=== PATIENT | male | born 1945 | race Caucasian/White ===

== ENCOUNTER → 2019-02-01 | Day surgery (SDC) | payer MEDICARE, OTHER ==
[~2019-02-01] MED LIST: Lactated Ringers 1,000 ML IV SCH; Propofol 200 MG/20 ML SDV IV ONE
--- NOTE | 2019-02-01 11:28 | OR ---
DATE OF OPERATION: 02/01/2019 PREOPERATIVE DIAGNOSIS: HISTORY OF COLON POLYPS. POSTOPERATIVE DIAGNOSIS: HISTORY OF COLON POLYPS. SURGEON: Chinedu Ornelas MD PROCEDURE: SURVEILLANCE COLONOSCOPY WITH POLYP REMOVAL X2, ONE VIA SNARE, ONE VIA FORCEPS. ANESTHESIA: MAC via [employer]. COMPLICATIONS: None. SPECIMEN: Tubular adenomas x2. See report. FINDINGS: 1. Full-length colonoscopy. 2. Small flat sessile polyp, cecal pouch. 3. Tubular adenomas, sigmoid colon. RECOMMENDATIONS: Followup colonoscopy in 5 years. INDICATIONS: The patient was in for a routine physical. He is overdue for a routine colonoscopy with a prior history of polyp removal. DESCRIPTION OF PROCEDURE: The patient was prepped and draped, placed in left lateral decubitus position. A lubricated Olympus colonoscope was inserted and with ease advanced to the cecum. We were able to directly visualize the ileocecal valve and appendiceal orifice. The bowel prep was fine. Upon withdrawal, right in the cecal pouch, the patient had a small flat sessile polyp in the cecal pouch, it was probably 2 to 3 mm, removed in its entirety with a forceps. The rest of the ascending, transverse, and descending colons were completely benign. In the mid portion of the sigmoid colon, the patient had a typical slightly less than 0.5 cm stalk tubular adenoma removed with a snare and suctioned into polyp trap #1 without difficulty. Throughout the rest of the sigmoid, there were no other polyps, mass, ulceration, or bleeding sites. No vascular abnormalities or signs of colitis. The rectal vault appeared benign. Retroflexion showed no perianal lesions. Air was suctioned, scope removed without complication. RADHA/NOHEMI /[id number]
== END ==
LOC: CC.SDS 08:28
PROVIDERS: ATTEND Family Medicine
DX: Z12.11 Encounter for screening for malignant neoplasm of colon (principal); D12.0 Benign neoplasm of cecum; D12.5 Benign neoplasm of sigmoid colon; I10 Essential (primary) hypertension; H26.9 Unspecified cataract; F41.9 Anxiety disorder, unspecified; F17.210 Nicotine dependence, cigarettes, uncomplicated; M17.10 Unilateral primary osteoarthritis, unspecified knee; Z88.1 Allergy status to other antibiotic agents; Z88.8 Allergy status to other drugs, medicaments and biological substances; Z86.010 Personal history of colon polyps; Z79.82 Long term (current) use of aspirin; Z79.899 Other long term (current) drug therapy
CPT/HCPCS: 45385; J2704; J7120

== ENCOUNTER 2024-08-29 22:29 | Inpatient (IN) | payer MEDICARE, MEDICAID ==
[2024-08-29 22:48] LABS: BASOPHILS ABSOLUTE AUTO 0.01 10^3/uL (0.00-0.50); BASOPHILS PERCENT AUTO 0.1 % (0-1); EOSINOPHILS ABSOLUTE AUTO 0.04 10^3/uL (0.00-1.50); EOSINOPHILS PERCENT AUTO 0.2 % (0-6); HEMOGLOBIN 14.7 g/dL (14.0-18.0); IMMATURE GRAN ABSOLUTE AUTO 0.28 10^3/uL (0.00-0.49); IMMATURE GRAN PERCENT AUTO 1.5 % (0.0-4.9); LYMPHOCYTES ABSOLUTE AUTO 1.44 10^3/uL (0.60-5.00); LYMPHOCYTES PERCENT AUTO 7.6 % (24-44); MEAN CORPUSCULAR HEMOGLOBIN 31.1 pg (27.0-32.0); MEAN CORPUSCULAR HGB CONC 33.4 g/dL (32.0-36.0); MEAN CORPUSCULAR VOLUME 93.2 fL (83.0-97.0); MONOCYTES ABSOLUTE AUTO 1.77 10^3/uL (0.00-1.50); MONOCYTES PERCENT AUTO 9.4 % (0-10); NEUTROPHILS ABSOLUTE AUTO 15.37 x10^3/uL (1.80-8.00); NEUTROPHILS PERCENT AUTO 81.2 % (41-71); PLATELET COUNT,PLT 227 10^3/uL (150-400); RED BLOOD CELL COUNT 4.72 x10^6/uL (4.50-6.00); WHITE BLOOD CELL COUNT,WBC 18.9 10^3/uL (4.0-11.0)
[2024-08-29 23:04] LABS: ALBUMIN 2.4 g/dL (3.4-5.0); BILIRUBIN TOTAL 0.7 mg/dL (0.0-1.0); C-REACTIVE PROTEIN 12.5 mg/dL (<=0.50); CALCIUM 9.5 mg/dL (8.4-10.1); CREATININE 1.2 mg/dL (0.7-1.3); EST CRCL DRUG DOSING (CG) 53.16 mL/min; MAGNESIUM 2.1 mg/dL (1.8-2.4); POTASSIUM,K 4.2 mEq/L (3.5-5.0); PROTEIN TOTAL,TP 6.4 g/dL (6.4-8.2)
[2024-08-29] MEDS: Iopamidol 755 Mg/ML 100 ML Bottle IVPUSH ONE (23:09)
[2024-08-29] MEDS: Acetaminophen 325 MG Tab PO ONE (23:16)
[2024-08-29 23:21] LABS: CORONAVIRUS COVID-19 NAA NEGATIVE (NEGATIVE); INFLUENZA A NAA NEGATIVE (NEGATIVE); INFLUENZA B NAA NEGATIVE (NEGATIVE); RESPIRATORY SYNCYTIAL VIR NAA NEGATIVE (NEGATIVE)
[2024-08-29 23:32] LABS: APPEARANCE,URINE CLEAR (CLEAR); BILIRUBIN,URINE NEGATIVE (NEGATIVE); COLOR,URINE YELLOW (YELLOW); GLUCOSE,URINE NEGATIVE (NEGATIVE); KETONES,URINE NEGATIVE (NEGATIVE); LEUKOCYTE ESTERASE,URINE NEGATIVE (NEGATIVE); NITRITE,URINE NEGATIVE (NEGATIVE); OCCULT BLOOD,URINE SMALL (NEGATIVE); PH,URINE 6.5 (4.5-8.0); PROTEIN,URINE NEGATIVE (NEGATIVE)
[2024-08-29 23:36] LABS: BACTERIA,URINE NOT SEEN /HPF (NOT SEEN); EPITHELIAL CELLS,URINE RARE /HPF (NOT SEEN); MUCUS,URINE NOT SEEN /HPF (NOT SEEN); RBC,URINE 0-5 /HPF (0-5); WBC,URINE NOT SEEN /HPF (0-5)
[2024-08-30] MEDS: ALPRAZolam 0.25 MG Tab PO STA (01:01)
[2024-08-30] MEDS ORDERED: Ondansetron 4 MG/2 ML SDV IV PRN (01:30)
[2024-08-30] MEDS ORDERED: Ondansetron 4 MG Tab.DIS PO PRN (01:30)
[2024-08-30] MEDS ORDERED: Acetaminophen 650 MG Supp RECTAL PRN (01:30)
[2024-08-30] MEDS: Sodium Chloride 0.9% 1,000 ML IV SCH (02:01)
[2024-08-30 07:41] LABS: ALBUMIN 2.3 g/dL (3.4-5.0); BILIRUBIN TOTAL 0.7 mg/dL (0.0-1.0); C-REACTIVE PROTEIN 11.56 mg/dL (<=0.50); CALCIUM 9.6 mg/dL (8.4-10.1); CREATININE 1.2 mg/dL (0.7-1.3); EST CRCL DRUG DOSING (CG) 35.3 mL/min; POTASSIUM,K 4.2 mEq/L (3.5-5.0); PROTEIN TOTAL,TP 6.1 g/dL (6.4-8.2)
[2024-08-30 07:44] LABS: BASOPHILS ABSOLUTE AUTO 0.02 10^3/uL (0.00-0.50); BASOPHILS PERCENT AUTO 0.1 % (0-1); EOSINOPHILS ABSOLUTE AUTO 0.04 10^3/uL (0.00-1.50); EOSINOPHILS PERCENT AUTO 0.3 % (0-6); HEMATOCRIT 43.6 % (42.0-52.0); HEMOGLOBIN 14.3 g/dL (14.0-18.0); IMMATURE GRAN ABSOLUTE AUTO 0.22 10^3/uL (0.00-0.49); IMMATURE GRAN PERCENT AUTO 1.4 % (0.0-4.9); LYMPHOCYTES ABSOLUTE AUTO 1.61 10^3/uL (0.60-5.00); LYMPHOCYTES PERCENT AUTO 10.5 % (24-44); MEAN CORPUSCULAR HGB CONC 32.8 g/dL (32.0-36.0); MEAN CORPUSCULAR VOLUME 94.6 fL (83.0-97.0); MONOCYTES ABSOLUTE AUTO 1.65 10^3/uL (0.00-1.50); MONOCYTES PERCENT AUTO 10.8 % (0-10); NEUTROPHILS ABSOLUTE AUTO 11.77 x10^3/uL (1.80-8.00); NEUTROPHILS PERCENT AUTO 76.9 % (41-71); PLATELET COUNT,PLT 224 10^3/uL (150-400); RED BLOOD CELL COUNT 4.61 x10^6/uL (4.50-6.00); WHITE BLOOD CELL COUNT,WBC 15.3 10^3/uL (4.0-11.0)
[2024-08-30] MEDS: Aspirin 81 MG Tab.EC PO SCH (08:03)
[2024-08-30] MEDS: AMOXAPINE 50 MG PO SCH (09:48)
[2024-08-30] MEDS: Metoprolol Succinate 100 MG Tab.ER PO ONE (09:50)
[2024-08-30] MEDS: Levofloxacin/Dextrose 5%-Water 500 MG in Premix Bag 1 BAG IV SCH (12:34)
[2024-08-30] MEDS: cefTRIAXone 1 GM Vial IVPUSH SCH (14:18)
[2024-08-30] MEDS: metroNIDAZOLE/Normal Saline 500 MG in Premix Bag 1 BAG IV SCH (14:22)
[2024-08-30] MEDS: Acetaminophen 325 MG Tab PO PRN (15:44)
[2024-08-30] MEDS: Tamsulosin 0.4 MG Cap.ER PO SCH (21:33)
[2024-08-30] MEDS: ALPRAZolam 0.25 MG Tab PO SCH (21:35)
[2024-08-30] MEDS: Metoprolol Succinate 100 MG Tab.ER PO SCH (21:43)
[2024-08-30] MEDS: Enoxaparin 40 MG/0.4 ML Syringe SUBCUT SCH (21:45)
[2024-08-31 07:46] LABS: BASOPHILS ABSOLUTE AUTO 0.03 10^3/uL (0.00-0.50); BASOPHILS PERCENT AUTO 0.2 % (0-1); EOSINOPHILS ABSOLUTE AUTO 0.07 10^3/uL (0.00-1.50); EOSINOPHILS PERCENT AUTO 0.4 % (0-6); HEMATOCRIT 37.8 % (42.0-52.0); HEMOGLOBIN 12.5 g/dL (14.0-18.0); IMMATURE GRAN ABSOLUTE AUTO 0.15 10^3/uL (0.00-0.49); IMMATURE GRAN PERCENT AUTO 0.9 % (0.0-4.9); LYMPHOCYTES ABSOLUTE AUTO 1.45 10^3/uL (0.60-5.00); LYMPHOCYTES PERCENT AUTO 9.1 % (24-44); MEAN CORPUSCULAR HEMOGLOBIN 31.3 pg (27.0-32.0); MEAN CORPUSCULAR HGB CONC 33.1 g/dL (32.0-36.0); MEAN CORPUSCULAR VOLUME 94.7 fL (83.0-97.0); MONOCYTES ABSOLUTE AUTO 1.68 10^3/uL (0.00-1.50); MONOCYTES PERCENT AUTO 10.5 % (0-10); NEUTROPHILS PERCENT AUTO 78.9 % (41-71); PLATELET COUNT,PLT 192 10^3/uL (150-400); RED BLOOD CELL COUNT 3.99 x10^6/uL (4.50-6.00)
[2024-08-31 08:00] LABS: BILIRUBIN TOTAL 0.5 mg/dL (0.0-1.0); C-REACTIVE PROTEIN 9.92 mg/dL (<=0.50); CALCIUM 8.7 mg/dL (8.4-10.1); CREATININE 1.1 mg/dL (0.7-1.3); EST CRCL DRUG DOSING (CG) 38.51 mL/min; POTASSIUM,K 4.3 mEq/L (3.5-5.0); PROTEIN TOTAL,TP 5.4 g/dL (6.4-8.2)
[2024-08-31] MEDS: Fluconazole 100 MG Tab PO SCH (09:46)
[2024-08-31] MEDS: Nicotine 14 MG/24 Hr Patch TRDERM SCH (10:31)
[2024-09-01 07:17] LABS: BASOPHILS ABSOLUTE AUTO 0.03 10^3/uL (0.00-0.50); BASOPHILS PERCENT AUTO 0.2 % (0-1); EOSINOPHILS ABSOLUTE AUTO 0.08 10^3/uL (0.00-1.50); EOSINOPHILS PERCENT AUTO 0.5 % (0-6); HEMOGLOBIN 13.5 g/dL (14.0-18.0); IMMATURE GRAN ABSOLUTE AUTO 0.11 10^3/uL (0.00-0.49); IMMATURE GRAN PERCENT AUTO 0.7 % (0.0-4.9); LYMPHOCYTES ABSOLUTE AUTO 1.38 10^3/uL (0.60-5.00); LYMPHOCYTES PERCENT AUTO 9.2 % (24-44); MEAN CORPUSCULAR HEMOGLOBIN 31.1 pg (27.0-32.0); MEAN CORPUSCULAR HGB CONC 32.9 g/dL (32.0-36.0); MEAN CORPUSCULAR VOLUME 94.5 fL (83.0-97.0); MONOCYTES ABSOLUTE AUTO 1.76 10^3/uL (0.00-1.50); MONOCYTES PERCENT AUTO 11.7 % (0-10); NEUTROPHILS ABSOLUTE AUTO 11.68 x10^3/uL (1.80-8.00); NEUTROPHILS PERCENT AUTO 77.7 % (41-71); PLATELET COUNT,PLT 198 10^3/uL (150-400); RED BLOOD CELL COUNT 4.34 x10^6/uL (4.50-6.00)
[2024-09-01 07:29] LABS: ALBUMIN 2.3 g/dL (3.4-5.0); BILIRUBIN TOTAL 0.6 mg/dL (0.0-1.0); C-REACTIVE PROTEIN 10.4 mg/dL (<=0.50); CREATININE 1.1 mg/dL (0.7-1.3); EST CRCL DRUG DOSING (CG) 38.51 mL/min
[2024-09-02 07:25] LABS: BASOPHILS ABSOLUTE AUTO 0.02 10^3/uL (0.00-0.50); BASOPHILS PERCENT AUTO 0.1 % (0-1); EOSINOPHILS ABSOLUTE AUTO 0.04 10^3/uL (0.00-1.50); EOSINOPHILS PERCENT AUTO 0.3 % (0-6); HEMATOCRIT 39.7 % (42.0-52.0); HEMOGLOBIN 13.1 g/dL (14.0-18.0); IMMATURE GRAN ABSOLUTE AUTO 0.09 10^3/uL (0.00-0.49); IMMATURE GRAN PERCENT AUTO 0.6 % (0.0-4.9); LYMPHOCYTES PERCENT AUTO 8.3 % (24-44); MEAN CORPUSCULAR VOLUME 93.9 fL (83.0-97.0); MONOCYTES ABSOLUTE AUTO 1.47 10^3/uL (0.00-1.50); MONOCYTES PERCENT AUTO 10.1 % (0-10); NEUTROPHILS PERCENT AUTO 80.6 % (41-71); PLATELET COUNT,PLT 195 10^3/uL (150-400); RED BLOOD CELL COUNT 4.23 x10^6/uL (4.50-6.00); WHITE BLOOD CELL COUNT,WBC 14.5 10^3/uL (4.0-11.0)
[2024-09-02 08:01] LABS: ALBUMIN 2.1 g/dL (3.4-5.0); BILIRUBIN TOTAL 0.6 mg/dL (0.0-1.0); C-REACTIVE PROTEIN 9.02 mg/dL (<=0.50); CALCIUM 9.3 mg/dL (8.4-10.1); CREATININE 1.1 mg/dL (0.7-1.3); EST CRCL DRUG DOSING (CG) 38.51 mL/min; POTASSIUM,K 4.2 mEq/L (3.5-5.0); PROTEIN TOTAL,TP 5.7 g/dL (6.4-8.2)
[2024-09-02 17:01] LABS: INR 1.1 (0.92-1.18); PROTHROMBIN TIME 11.3 SEC (9.3-11.3)
[2024-09-03 07:29] LABS: BASOPHILS ABSOLUTE AUTO 0.03 10^3/uL (0.00-0.50); BASOPHILS PERCENT AUTO 0.2 % (0-1); EOSINOPHILS ABSOLUTE AUTO 0.02 10^3/uL (0.00-1.50); EOSINOPHILS PERCENT AUTO 0.1 % (0-6); HEMATOCRIT 40.7 % (42.0-52.0); HEMOGLOBIN 13.4 g/dL (14.0-18.0); IMMATURE GRAN ABSOLUTE AUTO 0.07 10^3/uL (0.00-0.49); IMMATURE GRAN PERCENT AUTO 0.4 % (0.0-4.9); LYMPHOCYTES ABSOLUTE AUTO 0.98 10^3/uL (0.60-5.00); LYMPHOCYTES PERCENT AUTO 6.1 % (24-44); MEAN CORPUSCULAR HEMOGLOBIN 30.7 pg (27.0-32.0); MEAN CORPUSCULAR HGB CONC 32.9 g/dL (32.0-36.0); MEAN CORPUSCULAR VOLUME 93.1 fL (83.0-97.0); MONOCYTES ABSOLUTE AUTO 1.49 10^3/uL (0.00-1.50); MONOCYTES PERCENT AUTO 9.3 % (0-10); NEUTROPHILS ABSOLUTE AUTO 13.49 x10^3/uL (1.80-8.00); NEUTROPHILS PERCENT AUTO 83.9 % (41-71); PLATELET COUNT,PLT 220 10^3/uL (150-400); RED BLOOD CELL COUNT 4.37 x10^6/uL (4.50-6.00); WHITE BLOOD CELL COUNT,WBC 16.1 10^3/uL (4.0-11.0)
[2024-09-03 07:31] LABS: ALBUMIN 2.3 g/dL (3.4-5.0); BILIRUBIN TOTAL 0.8 mg/dL (0.0-1.0); C-REACTIVE PROTEIN 8.46 mg/dL (<=0.50); CALCIUM 9.1 mg/dL (8.4-10.1); CREATININE 1.1 mg/dL (0.7-1.3); EST CRCL DRUG DOSING (CG) 38.51 mL/min; POTASSIUM,K 4.1 mEq/L (3.5-5.0); PROTEIN TOTAL,TP 6.1 g/dL (6.4-8.2)
== END 2024-09-03 15:05 | DRG 443 ==
LOC: CC.ED 22:29 → CC.MS 08-30 00:54 → UNDOADMOB 08-30 00:57 → OBSVTOIN 08-30 13:51
PROVIDERS: ADMIT Nurse Practitioner Family; ATTEND Nurse Practitioner Family
DX: K75.0 Abscess of liver (principal); N41.9 Inflammatory disease of prostate, unspecified; D72.829 Elevated white blood cell count, unspecified; F41.9 Anxiety disorder, unspecified; F50.89 Other specified eating disorder; Z88.8 Allergy status to other drugs, medicaments and biological substances; Z79.82 Long term (current) use of aspirin; Z79.899 Other long term (current) drug therapy; Z68.34 Body mass index [BMI] 34.0-34.9, adult
CPT/HCPCS: 0241U; 36415; 70450; 71260; 74177; 76705; 80053; 81001; 83605; 83735; 84484; 85025; 85610; 86140; 87040; 93005; 97110-GP; 97161-GP; A9270-GY; J0696; J1650; J1836; J1956; J7030; Q9967

== ENCOUNTER 2024-09-17 11:45 | Inpatient (IN) | payer MEDICARE, MEDICAID ==
[2024-09-17] MEDS ORDERED: Docusate Sodium 100 MG Cap PO PRN (17:20)
[2024-09-17] MEDS ORDERED: Betamethasone Dipropionate/Clotrimazole 0.05-1% Crm 15 GM Tube TOP PRN (17:37)
[2024-09-17] MEDS ORDERED: Fluticasone NASAL Spray 16 GM Bottle NASBOTH PRN (18:25)
[2024-09-17] MEDS: AMOXAPINE PO SCH (18:45)
[2024-09-17] MEDS: ALPRAZolam 0.25 MG Tab PO SCH (20:18)
[2024-09-17] MEDS: metroNIDAZOLE 500 MG Tab PO SCH (20:18)
[2024-09-17] MEDS: cefTRIAXone 2 GM Vial IVPUSH SCH (20:18)
[2024-09-17] MEDS: Tamsulosin 0.4 MG Cap.ER PO SCH (20:18)
[2024-09-17] MEDS: Metoprolol Succinate 100 MG Tab.ER PO SCH (22:36)
[2024-09-18] MEDS ORDERED: Enoxaparin 40 MG/0.4 ML Syringe SUBCUT SCH (08:00)
[2024-09-18 08:03] LABS: ALBUMIN 2.6 g/dL (3.4-5.0); BILIRUBIN TOTAL 0.4 mg/dL (0.0-1.0); CALCIUM 9.6 mg/dL (8.4-10.1); EST CRCL DRUG DOSING (CG) 63.72 mL/min; POTASSIUM,K 3.7 mEq/L (3.5-5.0)
[2024-09-18] MEDS: Aspirin 81 MG Tab.EC PO SCH (08:12)
[2024-09-18] MEDS: AMOXAPINE 50 MG PO SCH (09:03)
[2024-09-18 09:09] LABS: BASOPHILS ABSOLUTE AUTO 0.05 10^3/uL (0.00-0.50); BASOPHILS PERCENT AUTO 0.8 % (0-1); EOSINOPHILS PERCENT AUTO 6.3 % (0-6); HEMATOCRIT 39.7 % (42.0-52.0); HEMOGLOBIN 12.9 g/dL (14.0-18.0); IMMATURE GRAN ABSOLUTE AUTO 0.02 10^3/uL (0.00-0.49); IMMATURE GRAN PERCENT AUTO 0.3 % (0.0-4.9); LYMPHOCYTES ABSOLUTE AUTO 1.27 10^3/uL (0.60-5.00); LYMPHOCYTES PERCENT AUTO 19.9 % (24-44); MEAN CORPUSCULAR HEMOGLOBIN 30.4 pg (27.0-32.0); MEAN CORPUSCULAR HGB CONC 32.5 g/dL (32.0-36.0); MEAN CORPUSCULAR VOLUME 93.6 fL (83.0-97.0); MONOCYTES ABSOLUTE AUTO 1.03 10^3/uL (0.00-1.50); MONOCYTES PERCENT AUTO 16.1 % (0-10); NEUTROPHILS ABSOLUTE AUTO 3.62 x10^3/uL (1.80-8.00); NEUTROPHILS PERCENT AUTO 56.6 % (41-71); PLATELET COUNT,PLT 293 10^3/uL (150-400); RED BLOOD CELL COUNT 4.24 x10^6/uL (4.50-6.00); WHITE BLOOD CELL COUNT,WBC 6.4 10^3/uL (4.0-11.0)
[2024-09-18] MEDS: Enoxaparin 40 MG/0.4 ML Syringe SUBCUT SCH (12:22)
[2024-09-23 07:36] LABS: CALCIUM 9.4 mg/dL (8.4-10.1); EST CRCL DRUG DOSING (CG) 63.72 mL/min; MAGNESIUM 1.8 mg/dL (1.8-2.4); POTASSIUM,K 3.9 mEq/L (3.5-5.0)
[2024-09-23 07:41] LABS: BASOPHILS ABSOLUTE AUTO 0.05 10^3/uL (0.00-0.50); BASOPHILS PERCENT AUTO 0.8 % (0-1); EOSINOPHILS ABSOLUTE AUTO 0.34 10^3/uL (0.00-1.50); EOSINOPHILS PERCENT AUTO 5.2 % (0-6); HEMATOCRIT 39.6 % (42.0-52.0); IMMATURE GRAN ABSOLUTE AUTO 0.01 10^3/uL (0.00-0.49); IMMATURE GRAN PERCENT AUTO 0.2 % (0.0-4.9); LYMPHOCYTES ABSOLUTE AUTO 1.15 10^3/uL (0.60-5.00); LYMPHOCYTES PERCENT AUTO 17.7 % (24-44); MEAN CORPUSCULAR HEMOGLOBIN 30.6 pg (27.0-32.0); MEAN CORPUSCULAR HGB CONC 32.8 g/dL (32.0-36.0); MEAN CORPUSCULAR VOLUME 93.2 fL (83.0-97.0); MONOCYTES ABSOLUTE AUTO 0.96 10^3/uL (0.00-1.50); MONOCYTES PERCENT AUTO 14.8 % (0-10); NEUTROPHILS ABSOLUTE AUTO 3.97 x10^3/uL (1.80-8.00); NEUTROPHILS PERCENT AUTO 61.3 % (41-71); PLATELET COUNT,PLT 247 10^3/uL (150-400); RED BLOOD CELL COUNT 4.25 x10^6/uL (4.50-6.00); WHITE BLOOD CELL COUNT,WBC 6.5 10^3/uL (4.0-11.0)
[2024-09-24] MEDS: Iopamidol 755 Mg/ML 100 ML Bottle IVPUSH ONE (08:41)
[2024-09-25] MEDS ORDERED: Ertapenem 1 GM in Sodium Chloride 0.9% 100 ML IV SCH (14:00)
[2024-09-25] MEDS ORDERED: Ertapenem 1 GM Vial IVPUSH SCH (14:30)
[2024-09-25] MEDS: Ertapenem 1 GM Vial IVPUSH ONE (14:32)
[2024-09-25] MEDS: Acetaminophen 325 MG Tab PO PRN (19:41)
[2024-09-26] MEDS: Lactobacillus Rhamnosus GG (Probiotic) Cap PO SCH (08:22)
[2024-09-26] MEDS: Ertapenem 1 GM Vial IVPUSH SCH (12:11)
== END 2024-09-27 11:50 | disposition home or self-care (01) | DRG 947 ==
LOC: CC.MS 14:47 → UNDOADMIN 14:47 → CC.MS 17:20
PROVIDERS: ADMIT Nurse Practitioner Family; ATTEND Nurse Practitioner Family
DX: R53.1 Weakness (principal); K75.0 Abscess of liver; R53.81 Other malaise; Z97.8 Presence of other specified devices; Z88.1 Allergy status to other antibiotic agents; Z88.8 Allergy status to other drugs, medicaments and biological substances; Z79.82 Long term (current) use of aspirin; Z79.899 Other long term (current) drug therapy
CPT/HCPCS: 36415; 74177; 80048; 80053; 83735; 85025; 86140; 97110-GP; 97161-GP; A9270-GY; J0696; J1335; J1650; Q9967

== ENCOUNTER 2024-11-07 16:35 | Emergency (ER) | payer MEDICARE, MEDICAID ==
[2024-11-07 17:10] LABS: BASOPHILS ABSOLUTE AUTO 0.03 10^3/uL (0.00-0.50); BASOPHILS PERCENT AUTO 0.1 % (0-1); EOSINOPHILS ABSOLUTE AUTO 0.01 10^3/uL (0.00-1.50); EOSINOPHILS PERCENT AUTO 0.0 % (0-6); IMMATURE GRAN ABSOLUTE AUTO 0.07 10^3/uL (0.00-0.49); IMMATURE GRAN PERCENT AUTO 0.3 % (0.0-4.9); LYMPHOCYTES ABSOLUTE AUTO 1.25 10^3/uL (0.60-5.00); LYMPHOCYTES PERCENT AUTO 6.0 % (24-44); MONOCYTES ABSOLUTE AUTO 2.09 10^3/uL (0.00-1.50); MONOCYTES PERCENT AUTO 10.1 % (0-10); NEUTROPHILS ABSOLUTE AUTO 17.25 x10^3/uL (1.80-8.00); NEUTROPHILS PERCENT AUTO 83.5 % (41-71); PLATELET COUNT,PLT 180 10^3/uL (150-400); RED BLOOD CELL COUNT 4.84 x10^6/uL (4.50-6.00)
[2024-11-07 17:15] LABS: WHITE BLOOD CELL COUNT,WBC 20.7 10^3/uL (4.0-11.0)
[2024-11-07 17:25] LABS: ALANINE AMINOTRANSFERASE,ALT 29 U/L (12-78); ASPARTATE AMNIOTRANSFERASE,AST 18 U/L (15-37); BILIRUBIN TOTAL 1.9 mg/dL (0.0-1.0); BLOOD UREA NITROGEN,BUN 18 mg/dL (7-18); CARBON DIOXIDE,CO2 23 mmol/L (21-32); CHLORIDE,CL 102 mEq/L (98-106); CREATININE 1.0 mg/dL (0.7-1.3); GLUCOSE RANDOM 185 mg/dL (75-99); POTASSIUM,K 3.9 mEq/L (3.5-5.0); PROTEIN TOTAL,TP 7.0 g/dL (6.4-8.2); SODIUM,NA 138 mEq/L (136-145)
[2024-11-07 17:29] LABS: ESTIMATED GFR 76 mL/min (>=60)
[2024-11-07] MEDS: VANCOmycin 2 GM/400 ML 2 GM in Premix Bag 1 BAG IV ONE (17:32)
[2024-11-07] MEDS: Iopamidol 755 Mg/ML 100 ML Bottle IVPUSH ONE (18:04)
[2024-11-07 20:10] LABS: APPEARANCE,URINE CLEAR (CLEAR); GLUCOSE,URINE NEGATIVE (NEGATIVE); OCCULT BLOOD,URINE TRACE-INTACT (NEGATIVE)
[2024-11-07 20:18] LABS: EPITHELIAL CELLS,URINE MODERATE /HPF (NOT SEEN)
[2024-11-07 21:24] VITALS: PULSE 104
[2024-11-07 22:00] VITALS: BP 145/62
== END 2024-11-07 21:30 ==
LOC: CC.ED 16:35
DX: A41.9 Sepsis, unspecified organism (principal); D72.828 Other elevated white blood cell count; R19.09 Other intra-abdominal and pelvic swelling, mass and lump; I10 Essential (primary) hypertension; Z79.899 Other long term (current) drug therapy; Z79.82 Long term (current) use of aspirin; Z88.1 Allergy status to other antibiotic agents; Z88.8 Allergy status to other drugs, medicaments and biological substances
CPT/HCPCS: 36415; 71045; 74177; 80053; 81001; 83605; 83690; 83735; 84484; 85025; 86140; 87040; 87426-QW; 93005; 93010; 96361; 96365; 96366; 96367; 99284; 99285-25; A9270-GY; J2543; J3372; J7030; Q9967

== ENCOUNTER 2024-11-14 11:22 | Inpatient (IN) | payer MEDICARE, MEDICAID ==
[2024-11-14] MEDS ORDERED: Ondansetron 4 MG Tab.DIS PO PRN (14:04)
[2024-11-14] MEDS ORDERED: Betamethasone Dipropionate/Clotrimazole 0.05-1% Crm 15 GM Tube TOP PRN (19:02)
[2024-11-14] MEDS ORDERED: Fluticasone NASAL Spray 16 GM Bottle NASBOTH PRN (19:02)
[2024-11-14] MEDS: Amoxicillin/Clavulanate K 875-125 MG Tab PO SCH (19:37)
[2024-11-14] MEDS: Metoprolol Succinate 100 MG Tab.ER PO SCH (19:39)
[2024-11-15] MEDS: Lactobacillus Rhamnosus GG (Probiotic) Cap PO SCH (08:07)
[2024-11-15] MEDS: AMOXAPINE 50 MG PO ONE (17:31)
[2024-11-17] MEDS: AMOXAPINE 50 MG PO SCH (12:14)
[2024-11-17] MEDS: Oxyquinoline/Emollient 0.3% Oint 4 OZ Canister TOP SCH (14:11)
[2024-11-20] MEDS: Amoxicillin/Clavulanate K 875-125 MG Tab PO ONE (13:57)
== END 2024-11-20 14:25 | disposition home or self-care (01) | DRG 948 ==
LOC: CC.MS 13:48 → UNDOADMIN 14:01 → CC.MS 14:01
PROVIDERS: ADMIT Physician Assistant Medical; ATTEND Physician Assistant Medical
DX: R53.81 Other malaise (principal); I10 Essential (primary) hypertension; F41.9 Anxiety disorder, unspecified; J84.10 Pulmonary fibrosis, unspecified; K63.89 Other specified diseases of intestine; Z79.82 Long term (current) use of aspirin; Z88.8 Allergy status to other drugs, medicaments and biological substances; Z98.890 Other specified postprocedural states; Z79.899 Other long term (current) drug therapy; Z86.73 Personal history of transient ischemic attack (TIA), and cerebral infarction without residual deficits; Z87.891 Personal history of nicotine dependence
CPT/HCPCS: 97110-GP; 97161-GP; 97530-GP; 99306; 99315; A9270-GY; J1650

== ENCOUNTER 2024-11-27 09:06 | Observation (INO) | payer MEDICARE, MEDICAID ==
[2024-11-27] MEDS: Bacitracin Oint 1 GM U/D Packet TOP ONE (09:25)
[2024-11-27] MEDS: fentaNYL 50 MCG/ML SDV IVPUSH ONE (16:32)
[2024-11-27] MEDS ORDERED: Ondansetron 4 MG Tab.DIS PO PRN (21:13)
[2024-11-27] MEDS ORDERED: Sodium Chloride 0.9% 10 ML Syringe FLUSH PRN (21:13)
[2024-11-27] MEDS ORDERED: fentaNYL 50 MCG/ML SDV IVPUSH PRN (21:13)
[2024-11-27] MEDS ORDERED: Ondansetron 4 MG/2 ML SDV IV PRN (21:13)
[2024-11-27] MEDS: Metoprolol Succinate 100 MG Tab.ER PO SCH (22:06)
[2024-11-28] MEDS: Acetaminophen/HYDROcodone 325-5 MG Tab PO PRN (05:45)
[2024-11-28 07:16] LABS: BASOPHILS ABSOLUTE AUTO 0.05 10^3/uL (0.00-0.50); BASOPHILS PERCENT AUTO 0.5 % (0-1); EOSINOPHILS ABSOLUTE AUTO 0.78 10^3/uL (0.00-1.50); EOSINOPHILS PERCENT AUTO 8.3 % (0-6); IMMATURE GRAN ABSOLUTE AUTO 0.03 10^3/uL (0.00-0.49); IMMATURE GRAN PERCENT AUTO 0.3 % (0.0-4.9); LYMPHOCYTES ABSOLUTE AUTO 1.38 10^3/uL (0.60-5.00); LYMPHOCYTES PERCENT AUTO 14.7 % (24-44); MONOCYTES ABSOLUTE AUTO 1.04 10^3/uL (0.00-1.50); MONOCYTES PERCENT AUTO 11.1 % (0-10); NEUTROPHILS ABSOLUTE AUTO 6.12 x10^3/uL (1.80-8.00); NEUTROPHILS PERCENT AUTO 65.1 % (41-71); PLATELET COUNT,PLT 190 10^3/uL (150-400); RED BLOOD CELL COUNT 5.05 x10^6/uL (4.50-6.00); WHITE BLOOD CELL COUNT,WBC 9.4 10^3/uL (4.0-11.0)
[2024-11-28 07:34] LABS: ALANINE AMINOTRANSFERASE,ALT 24.0 U/L (12-78); ASPARTATE AMNIOTRANSFERASE,AST 19.0 U/L (15-37); BILIRUBIN TOTAL 1.3 mg/dL (0.0-1.0); BLOOD UREA NITROGEN,BUN 14.0 mg/dL (7-18); CARBON DIOXIDE,CO2 27.0 mmol/L (21-32); CHLORIDE,CL 103.0 mEq/L (98-106); CREATININE 0.8 mg/dL (0.7-1.3); EST CRCL DRUG DOSING (CG) 78.44 mL/min; GLUCOSE RANDOM 130.0 mg/dL (75-99); POTASSIUM,K 3.9 mEq/L (3.5-5.0); PROTEIN TOTAL,TP 6.8 g/dL (6.4-8.2); SODIUM,NA 138.0 mEq/L (136-145)
[2024-11-28 07:42] LABS: ESTIMATED GFR 89.0 mL/min (>=60)
[2024-11-28] MEDS: Lactobacillus Rhamnosus GG (Probiotic) Cap PO SCH (08:08)
[2024-11-28] MEDS ORDERED: Fluticasone NASAL Spray 16 GM Bottle NASBOTH PRN (08:26)
[2024-11-28] MEDS: AMOXAPINE 50 MG PO SCH (09:53)
[2024-11-28 16:59] VITALS: BP 129/85; PULSE 87
== END 2024-11-28 19:21 ==
LOC: CC.ED 09:06 → CC.MS 19:49 → UNDOADMOB 20:50 → CC.MS 20:50
PROVIDERS: ADMIT Physician Assistant Medical; ATTEND Physician Assistant Medical
DX: S72.009A Fracture of unspecified part of neck of unspecified femur, initial encounter for closed fracture (principal); I10 Essential (primary) hypertension; F41.9 Anxiety disorder, unspecified; Z87.891 Personal history of nicotine dependence; Z88.8 Allergy status to other drugs, medicaments and biological substances; Z88.5 Allergy status to narcotic agent; Z79.899 Other long term (current) drug therapy; X58.XXXA Exposure to other specified factors, initial encounter
CPT/HCPCS: 36415; 73700-RT; 80053; 85025; 96374; 99285-25; A6212; A9270-GY; J3010